=== PATIENT | female | born 1985 | race Caucasian/White ===

== ENCOUNTER 2018-04-03 21:24 | Emergency (ER) | payer BC ==
[~2018-04-03] VITALS: Ht 565.3 cm; Wt 56.8 kg
[2018-04-04] MEDS ORDERED: FAMO-128 PO (00:03)
[2018-04-04 00:20] VITALS: BP 122/78
== END 2018-04-04 00:21 | disposition home or self-care (01) ==
LOC: ER 21:25
DX: R13.10 Dysphagia, unspecified (principal); R07.89 Other chest pain; R19.7 Diarrhea, unspecified; R22.0 Localized swelling, mass and lump, head; R11.10 Vomiting, unspecified; Z79.899 Other long term (current) drug therapy
CPT/HCPCS: 71045; 93005; 99284